=== PATIENT | female | born 1950 | race Two or more races ===

== ENCOUNTER 2021-05-22 10:33 | Emergency (ER) | payer OTHER ==
[~2021-05-22] VITALS: Ht 149.9 cm; Wt 74.4 kg
[2021-05-22 10:36] VITALS: BP 206/104
== END 2021-05-22 13:21 | disposition home or self-care (01) ==
LOC: ER 10:33
DX: H11.33 Conjunctival hemorrhage, bilateral (principal); I10 Essential (primary) hypertension

== ENCOUNTER 2023-11-04 23:33 | Inpatient (IN) | payer OTHER ==
[~2023-11-04] VITALS: Ht 149.9 cm; Wt 89.4 kg
[2023-11-04 23:59] VITALS: PULSE 78; RESP 20; O2SAT 95
[2023-11-05] VITALS (9 sets, daily range): BP systolic 141; BP diastolic 83; PULSE 77–84; RESP 16–18; O2SAT 95–100
[2023-11-05] MEDS: ALBUTEROL SULF 2.5 MG/0.5ML(0.5%) NEB SOLN NEB ONE (00:04)
[2023-11-05 00:28] LABS: Base Excess -0.9 mmol/L (-2.0-2.0)
[2023-11-05 01:01] LABS: Rapid Influenza A Negative (Negative); Rapid Influenza B Negative (Negative)
[2023-11-05 01:07] LABS: COVID19 ANTIGEN SOFIA FIA NEGATIVE (NEGATIVE)
[2023-11-05 01:13] LABS: Basophils # (auto) 0 10 ^3/uL (0-0.2); Basophils % (auto) 0.6 % (0.0-2.0); Eosinophils # (auto) 0 10 ^3/uL (0-0.8); Eosinophils % (auto) 0.7 % (0.0-7.0); Hematocrit 40.2 % (36.0-46.0); Hemoglobin 12.5 g/dL (12.2-16.2); Lymphocytes # (auto) 1.2 10 ^3/uL (0.4-5.4); Lymphocytes % (auto) 16.5 % (10.0-50.0); Mean Corpuscular Hemoglobin 29.4 pg (28.0-32.0); Mean Corpuscular Volume 94.8 fL (80.0-100.0); Monocytes # (auto) 0.5 10 ^3/uL (0-1.3); Monocytes % (auto) 6.5 % (0.0-12.0); Neutrophils # (auto) 5.6 10 ^3/uL (1.6-8.6); Neutrophils % (auto) 75.7 % (37.0-80.0); Nucleated Red Blood Cells % 0.1 %; Red Blood Cells 4.24 10^6/uL (4.0-5.20); Red Cell Distribution Width 17.4 % (11.8-14.3); White Blood Cell 7.3 10^3/uL (4.4-10.8)
[2023-11-05 01:28] LABS: INR 1.04 (0.9-1.15); Partial Thromboplastin Time 22.4 SEC (24.5-34.5); Prothrombin Time 10.9 sec (9.3-11.8)
[2023-11-05 01:29] LABS: Alanine Aminotransferase 16 U/L (7-40); Alkaline Phosphatase 48 U/L (46-116); Anion Gap 11 (5-15); Aspartate Aminotransferase 25 U/L (13-40); BUN/Creatinine Ratio 19.4 (10.0-20.0); Blood Urea Nitrogen 24 mg/dL (9-23); Calcium 8.7 mg/dL (8.7-10.4); Carbon Dioxide 25 mmol/L (20-30); Chloride 107 mmol/L (98-107); Glucose 111 mg/dL (74-106); Potassium 3.2 mmol/L (3.5-5.1); Sodium 143 mmol/L (136-145)
[2023-11-05 01:30] LABS: Bilirubin, Total 0.4 mg/dL (0.2-1.0); Total Protein 6.5 g/dL (5.7-8.2)
[2023-11-05] MEDS: cefTRIAXone 1GM/50ML D5W 50 ML IV ONE (02:11)
[2023-11-05] MEDS: AZITHROMYCIN 500MG/ 250ML 250 ML IV ONE (02:45)
[2023-11-05] MEDS: FUROSEMIDE 40 MG/4 ML VIAL IV ONE (02:59)
[2023-11-05 03:53] LABS: Urine Epithelial Cast None Seen /hpf (<5)
[2023-11-05 04:07] LABS: Urine Bacteria NONE SEEN /hpf (None Seen); Urine Blood Negative /uL (Negative); Urine Clarity Clear (Clear); Urine Protein, UAD Negative (Negative); Urine Specific Gravity 1.013 (1.001-1.035); Urine Urobilinogen Normal (Negative); Urine WBC <1 /hpf (0 - 5); Urine pH 5.5 (5.0-8.0)
[2023-11-05] MEDS: NITROGLYCERIN 2% OINT 1GM PKG TD ONE (04:11)
[2023-11-05] MEDS: ASPirin 81 mg TAB PO ONE (04:11)
[2023-11-05 04:42] LABS: Urine Color Straw (Yellow)
[2023-11-05] MEDS ORDERED: NITROGLYCERIN 0.4 MG SL TAB SL PRN (05:30)
[2023-11-05] MEDS ORDERED: MORPHINE SULFATE INJ 2 MG/ml SYRG IV PRN (05:30)
[2023-11-05] MEDS: FUROSEMIDE 40 MG/4 ML VIAL IV SCH (06:00)
[2023-11-05] MEDS: methylPREDNISolone SOD SUCC 125 MG/2 ML VL IV SCH (06:04)
[2023-11-05] MEDS: ALBUTEROL SULF 2.5 MG/0.5ML(0.5%) NEB SOLN NEB SCH (06:21)
[2023-11-05] MEDS: IPRATROPIUM BROM 0.5 MG/2.5ML INH SOL NEB SCH (06:21)
[2023-11-06] VITALS (11 sets, daily range): BP systolic 125–135; BP diastolic 62–79; PULSE 62–97; RESP 16–20; TEMP 97.7–98.7; O2SAT 93–100
[2023-11-06] MEDS: cefTRIAXone 1GM/50ML D5W 50 ML IV SCH (02:46)
[2023-11-06] MEDS: AZITHROMYCIN 500MG/ 250ML 250 ML IV SCH (03:45)
[2023-11-06] MEDS ORDERED: IVERMECTIN PO ONE (09:45)
[2023-11-06 10:30] LABS: Basophils # (auto) 0 10 ^3/uL (0-0.2); Basophils % (auto) 0.1 % (0.0-2.0); Eosinophils # (auto) 0 10 ^3/uL (0-0.8); Eosinophils % (auto) 0.1 % (0.0-7.0); Hematocrit 36.1 % (36.0-46.0); Hemoglobin 11.8 g/dL (12.2-16.2); Lymphocytes # (auto) 0.4 10 ^3/uL (0.4-5.4); Mean Corpuscular Hemoglobin 29.1 pg (28.0-32.0); Mean Corpuscular Hgb Conc. 32.5 g/dL (32.0-36.0); Mean Corpuscular Volume 89.5 fL (80.0-100.0); Monocytes # (auto) 0.3 10 ^3/uL (0-1.3); Monocytes % (auto) 3.1 % (0.0-12.0); Neutrophils # (auto) 7.8 10 ^3/uL (1.6-8.6); Neutrophils % (auto) 91.7 % (37.0-80.0); Red Blood Cells 4.04 10^6/uL (4.0-5.20); Red Cell Distribution Width 15.9 % (11.8-14.3); White Blood Cell 8.5 10^3/uL (4.4-10.8)
[2023-11-06 10:48] LABS: Albumin 3.8 g/dL (3.2-4.8); Alkaline Phosphatase 39 U/L (46-116); Anion Gap 6 (5-15); Aspartate Aminotransferase 14 U/L (13-40); BUN/Creatinine Ratio 15.4 (10.0-20.0); Blood Urea Nitrogen 19 mg/dL (9-23); Calcium 8.5 mg/dL (8.7-10.4); Carbon Dioxide 30 mmol/L (20-30); Chloride 103 mmol/L (98-107); Glucose 115 mg/dL (74-106); Potassium 3.4 mmol/L (3.5-5.1); Sodium 139 mmol/L (136-145)
[2023-11-06 10:49] LABS: Bilirubin, Total 0.6 mg/dL (0.2-1.0); Total Protein 6.4 g/dL (5.7-8.2)
[2023-11-06 11:00] LABS: Alanine Aminotransferase < 9 U/L (7-40)
[2023-11-06 11:07] LABS: Hepatitis B Surface Antigen Negative (Negative)
[2023-11-06 11:28] LABS: Hepatitis C Antibody Negative (Negative)
[2023-11-06] MEDS ORDERED: DOXY-448 PO (11:47)
[2023-11-06] MEDS ORDERED: AUG875T PO (11:48)
[2023-11-06] MEDS ORDERED: PRED20TA2 PO (11:49)
[2023-11-06] MEDS ORDERED: IPRA0.00 IN (11:52)
[2023-11-06] MEDS ORDERED: APIX5TAB4 PO (20:49)
[2023-11-06] MEDS: DOXYCYCLINE 100 MG TAB/CAP PO SCH (21:23)
[2023-11-07] VITALS (12 sets, daily range): BP systolic 114–150; BP diastolic 68–97; PULSE 60–87; RESP 16–18; TEMP 97.5–98.3; O2SAT 93–100
[2023-11-07] MEDS: APIXABAN 5 MG TAB PO SCH (00:10)
[2023-11-07 06:11] LABS: Basophils # (auto) 0 10 ^3/uL (0-0.2); Basophils % (auto) 0.2 % (0.0-2.0); Eosinophils # (auto) 0 10 ^3/uL (0-0.8); Eosinophils % (auto) 0.4 % (0.0-7.0); Hematocrit 35.3 % (36.0-46.0); Hemoglobin 11.5 g/dL (12.2-16.2); Lymphocytes # (auto) 1.2 10 ^3/uL (0.4-5.4); Lymphocytes % (auto) 15.2 % (10.0-50.0); Mean Corpuscular Hemoglobin 29.4 pg (28.0-32.0); Mean Corpuscular Hgb Conc. 32.6 g/dL (32.0-36.0); Mean Corpuscular Volume 90.3 fL (80.0-100.0); Monocytes # (auto) 0.6 10 ^3/uL (0-1.3); Monocytes % (auto) 7.5 % (0.0-12.0); Neutrophils # (auto) 6.3 10 ^3/uL (1.6-8.6); Neutrophils % (auto) 76.7 % (37.0-80.0); Nucleated Red Blood Cells % 0.1 %; Red Blood Cells 3.91 10^6/uL (4.0-5.20); Red Cell Distribution Width 16.2 % (11.8-14.3); White Blood Cell 8.2 10^3/uL (4.4-10.8)
[2023-11-07 06:43] LABS: Albumin 3.4 g/dL (3.2-4.8); Alkaline Phosphatase 37 U/L (46-116); Anion Gap 9 (5-15); Aspartate Aminotransferase 14 U/L (13-40); BUN/Creatinine Ratio 12.2 (10.0-20.0); Blood Urea Nitrogen 15 mg/dL (9-23); Calcium 8.8 mg/dL (8.5-10.1); Carbon Dioxide 27 mmol/L (20-30); Chloride 104 mmol/L (98-107); Glucose 97 mg/dL (74-106); Potassium 3.3 mmol/L (3.5-5.1); Sodium 140 mmol/L (136-145)
[2023-11-07 06:44] LABS: Bilirubin, Total 0.6 mg/dL (0.2-1.0); Total Protein 5.7 g/dL (5.7-8.2)
[2023-11-07 07:09] LABS: Alanine Aminotransferase < 9 U/L (7-40)
[2023-11-07] MEDS: [UNRECOGNIZED DRUG - OTHER] PO SCH (10:00)
[2023-11-13] MEDS ORDERED: APIXABAN 5 MG TAB PO SCH (22:00)
== END 2023-11-07 19:38 | disposition hospice, home (50) | DRG 189 ==
LOC: ER 23:33 → EDBD 23:33 → TELE 11-05 05:36 → OBSVTOIN 11-05 05:36 → TELE-CENTR 11-06 05:36
PROVIDERS: ADMIT Internal Medicine; ATTEND Student in an Organized Health Care Education/Training Program
DX: J96.20 Acute and chronic respiratory failure, unspecified whether with hypoxia or hypercapnia (principal); I50.41 Acute combined systolic (congestive) and diastolic (congestive) heart failure; J15.69 Pneumonia due to other Gram-negative bacteria; J15.9 Unspecified bacterial pneumonia; I13.0 Hypertensive heart and chronic kidney disease with heart failure and stage 1 through stage 4 chronic kidney disease, or unspecified chronic kidney disease; I82.401 Acute embolism and thrombosis of unspecified deep veins of right lower extremity; D68.59 Other primary thrombophilia; J44.0 Chronic obstructive pulmonary disease with (acute) lower respiratory infection; Z20.822 Contact with and (suspected) exposure to COVID-19; E11.22 Type 2 diabetes mellitus with diabetic chronic kidney disease; N18.31 Chronic kidney disease, stage 3a; E66.01 Morbid (severe) obesity due to excess calories; E78.5 Hyperlipidemia, unspecified; M79.7 Fibromyalgia; I25.10 Atherosclerotic heart disease of native coronary artery without angina pectoris; B89 Unspecified parasitic disease; Z68.39 Body mass index [BMI] 39.0-39.9, adult; Z86.2 Personal history of diseases of the blood and blood-forming organs and certain disorders involving the immune mechanism
CPT/HCPCS: 36415; 36600; 71045; 78582; 80053; 81001; 82805; 83036; 83605; 83735; 83880; 84484; 85025; 85610; 85730; 86803; 87040; 87081; 87340; 87426; 87804; 93005; 93306; 93970; 94640; 96365; 96366; 96367; 96375; 96376; 99291; G0378